=== PATIENT | female | born 1965 | race Caucasian/White ===

== ENCOUNTER → 2019-04-12 | Outpatient (CLI) | payer BC ==
--- NOTE | 2019-04-12 16:14 | REPMRS ---
Patient History The patient states she has not had a clinical breast exam in over a year. Patient is postmenopausal. Family history of breast cancer at age 50 in maternal grandmother, breast cancer at age 32 in paternal aunt. No Hormone Replacement Therapy 3D TOMOSYNTHESIS WAS PERFORMED. Digital Woman Screen Mammo: April 12, 2019 - Exam #: [id number] Bilateral CC and MLO view(s) were taken. Technologist: Irena Aguilar, Technologist FINDINGS: There are scattered fibroglandular densities. There has been no change in the appearance of the mammogram from the prior studies. There is a mild amount of residual fibroglandular tissue which is fairly symmetric. There is no interval development of dominant mass, architectural distortion, or clustered microcalcification suggestive of malignancy. Assessment: BI-RADS/ACR category 1 mammogram. Negative Mammogram. Recommendation Routine screening mammogram in 1 year (for women over age 40). This mammogram was interpreted with the aid of an FDA-approved computer-aided dectection system. THE LIFETIME RISK OF BREAST CANCER IS 22.0%, THEREFORE SUPPLEMENTAL SCREENING MRI OF THE BREASTS IS RECOMMENDED IN 6 MONTHS. Electronically Signed By: Gordo Jolley MD 04/12/19 [id number]
== END ==
LOC: M WHC 14:28
PROVIDERS: ATTEND Physician Assistant Medical
DX: Z12.31 Encounter for screening mammogram for malignant neoplasm of breast (principal); Z78.0 Asymptomatic menopausal state; Z80.3 Family history of malignant neoplasm of breast

== ENCOUNTER 2021-03-15 19:13 | Observation (INO) | payer SELFPAY ==
[~2021-03-15] VITALS: Ht 172.7 cm; Wt 116.4 kg
[2021-03-15] MEDS ORDERED: lisinopriL 5 MG TAB PO SCH (21:00)
[2021-03-15] MEDS ORDERED: NS 1,000 ML IV ONE (21:20)
--- NOTE | 2021-03-15 21:30 | ECGEPIP ---
[facility] - ED Test Date: 2021-03-15 Pat Name: TRENT ARTEAGA Department: Room: - Gender: Female Mission Manager: TEREZA : 1965 Requested By: SARTHAK Uriostegui Order Number: [id number] Reading MD: Gerard Stewart Measurements Intervals [place] Rate: 98 P: -8 SD: 152 QRS: -24 QRSD: 98 T: 19 QT: 366 QTc: 467 Interpretive Statements Normal sinus rhythm Minimal voltage criteria for LVH, may be normal variant ( Gustavo product ) POOR R WAVE PROGRESSION SIMILAR TO 06/12/16 Electronically Signed on 03-15-2021 21:29:30 EDT by Gerard Stewart
[2021-03-15 22:01] LABS: VENOUS BASE EXCESS 2.1 (-2.0-2.0); VENOUS HCO3 28.8 MEQ/L (23.0-27.0); VENOUS O2 SATURATION 58.7 % (60.0-80.0); VENOUS PARTIAL PRESSURE CO2 52.1 mmHg (38.0-50.0); VENOUS PARTIAL PRESSURE O2 30.6 mmHg (30.0-50.0); VENOUS STANDARD HCO3 25.3 MEQ/L; VENOUS TOTAL CO2 30.4 MEQ/L (24.0-28.0)
[2021-03-15 22:03] LABS: BASO # 0.1 10^3/uL (0.0-0.2); BASO % 0.8 % (0.0-1.0); EOS # 0.2 10^3/uL (0.0-0.5); EOS % 2.6 % (0.0-3.0); HEMATOCRIT 42.1 % (36.0-47.0); LYMPH # 2.1 10^3/uL (1.5-5.0); LYMPH % 25.9 % (24.0-44.0); MEAN CORPUSCULAR HEMOGLOBIN 30.7 pg (27.0-33.0); MEAN CORPUSCULAR HGB CONC 35.6 g/dl (32.0-36.5); MEAN CORPUSCULAR VOLUME 86.1 fl (80.0-96.0); MONO # 0.4 10^3/uL (0.0-0.8); MONO % 5.3 % (2.0-8.0); NEUTROPHILS # 5.2 10^3/uL (1.5-8.5); NEUTROPHILS % 64.6 % (36.0-66.0); PLATELET COUNT, AUTOMATED 176 10^3/uL (150-450); RED BLOOD COUNT 4.89 10^6/uL (4.00-5.40)
[2021-03-15 22:31] LABS: CK-MB VALUE MASS < 1.0 NG/ML (<3.6); CPK CREATINE PHOSPHOKINASE 43 U/L (26-192); MB/CK RELATIVE INDEX 2.33 (< OR =4); TROPONIN I < 0.02 NG/ML (< 0.10)
[2021-03-15 22:34] LABS: HEMOGLOBIN A1c 13.3 %
[2021-03-15 22:36] LABS: ACETONE/KETONE 13.73 MG/DL (<2.81); ALBUMIN 4.3 GM/DL (3.2-5.2); BILIRUBIN,DIRECT 0.4 MG/DL (0.0-0.2); BILIRUBIN,TOTAL 1.6 MG/DL (0.2-1.0); CALCIUM LEVEL 9.4 MG/DL (8.5-10.1); CREATININE FOR GFR 1.39 MG/DL (0.55-1.30); GLOMERULAR FILTRATION RATE 42.1 (>51); POTASSIUM SERUM 3.3 MEQ/L (3.5-5.1); TOTAL PROTEIN 7.5 GM/DL (6.4-8.2)
[2021-03-15] MEDS ORDERED: GLUCAGON INJ 1MG VIAL SC PRN (23:15)
[2021-03-15] MEDS ORDERED: GLUCOSE 4GM CHEW TABLET PO PRN (23:15)
[2021-03-15] MEDS ORDERED: ACETAMINOPHEN TAB 650MG DOSE (2X325MG) PO PRN (23:15)
[2021-03-15] MEDS ORDERED: LEVEMIR (INSULIN DETEMIR) 1 UNITS/0.01ML SC ONE (23:15)
[2021-03-15] MEDS ORDERED: MOM 30ML SUSPENSION UDC PO PRN (23:15)
[2021-03-15] MEDS ORDERED: MAALOX 30 ML SUSP *UDC PO PRN (23:15)
[2021-03-15] MEDS ORDERED: DEXTROSE 50% 50 ML SYRINGE IV PRN (23:15)
--- NOTE | 2021-03-15 23:16 | HPEPDOC ---
[facility] Medical History & Physical Date of Admission Mar 15, 2021 Date of Service: Mar 15, 2021 Attending Physician: CHINA MATHEW MD History and Physical CHIEF COMPLAINT: [55 y/o female reports to ED after abnormal routine bloodwork] HISTORY OF PRESENT ILLNESS: [This is a 55 y/o female with a pmh of htn who presents to the ED after routine lab work at her PCP office showed a blood glucose of over 500. Patient states that she has not had routine bloodwork since approx. 2016. Patient states that she has no acute complaints and denies fevers, chills, abd pain, n/v/d/c, sob, chest pain, headaches. Patient does not have formal diagnosis of diabetes. Repeat labwork performed in the ED showed blood glucose of 428, A1C of 13.3, cr of 1.39] PAST MEDICAL HISTORY: 1. [See HPI PAST SURGICAL HISTORY: 1. [Cholecystectomy]. SOCIAL HISTORY: Tobacco use:[Denies] ETOH: [Denies] Illicit drug use: [Denies] FAMILY HISTORY: Reviewed - none pertinent ALLERGIES: Please see below. REVIEW OF SYSTEMS: CONSTITUTIONAL: [See HPI]. HEENT: [Denies uri sx]. CARDIOVASCULAR: [See HPI]. RESPIRATORY: [See HPI]. GASTROINTESTINAL: [See HPI]. GENITOURINARY: [Denies dysuria]. SKIN: [Denies rash]. MUSCULOSKELETAL: [Denies acute joint/back pain]. NEUROLOGICAL: [Denies syncope, paresthesias]. ENDOCRINE: [Denies hx of DM]. HEMATOLOGIC/LYMPHATIC: [Denies easy bruising]. HOME MEDICATIONS: Please see below. PHYSICAL EXAMINATION: VITAL SIGNS: Please see below. GENERAL APPEARANCE: [This is an obese 55 y/o female who does not appear to be in any acute distress.]. HEENT: [No mass or lesion. EOMI. No scleral icterus. Nares patent. Oral mucosa moist.]. CARDIOVASCULAR: [Regular rate, rhythm. No murmurs, rubs, gallops]. LUNGS: [Good air flow b/l. No wheezing, rales, rhonchi.]. ABDOMEN: [Soft, nontender]. MUSCULOSKELETAL: [No joint deformity]. EXTREMITIES: [No peripheral edema noted. No overlying skin changes. Pulses intact]. NEUROLOGICAL: [Speech clear. A+Ox3. No focal deficits]. PSYCHIATRIC: [Mood and affect appear appropriate.]. LABORATORY DATA: See below. MICROBIOLOGY: Please see below. ASSESSMENT: [This is a 55 y/o female with a pmh of htn who presents to the ED after routine lab work at her PCP office showed a blood glucose of over 500. Repeat labwork performed in the ED showed blood glucose of 428, A1C of 13.3, cr of 1.39]. . PLAN: 1. [Type 2 diabetes with hyperglycemia - Patient does not meet total criteria for DKA. No anion gap acidosis. Only mild ketones - Will give 5 units of lispro, 10 units of levemir now - Acuchecks q2h overnight - Sliding scale, hypoglycemic protocol while in the hospital - consistent carbs diet - Diabetic teaching ordered - patient will need to leave the hospital on some sort of diabetic medication - Admit to pcu for obs 2. ALINA - cr slightly elevated at 1.4 - Almost certainly related to dehydration 2/2 acutely elevated glucose - Patient will be given fluids - Renal us, urine na and cr - Repeat kidney function in the morning 3. HTN - continue chlorthalidone, spironolactone, beckie DVT prophylaxis - teds and scds]. Vital Signs Vital Signs Date Time Temp Pulse Resp B/P (MAP) Pulse Ox O2 Delivery O2 Flow Rate FiO2 03/15/21 22:00 03/15/21 19:15 96.8 109 20 99 Room Air Laboratory Data Labs 24H Laboratory Tests 2 03/15/21 21:50: Immature Granulocyte % (Auto) 0.8, Neutrophils (%) (Auto) 64.6, Lymphocytes (%) (Auto) 25.9, Monocytes (%) (Auto) 5.3, Eosinophils (%) (Auto) 2.6, Basophils (%) (Auto) 0.8, Neutrophils # (Auto) 5.2, Lymphocytes # (Auto) 2.1, Monocytes # (Auto) 0.4, Eosinophils # (Auto) 0.2, Basophils # (Auto) 0.1, Nucleated Red Blood Cells % (auto) 0.0, Urine Color YELLOW, Urine Appearance CLEAR, Urine pH 5.0, Urine Specific [place] 1.029, Urine Protein NEGATIVE, Urine Glucose (UA) 3+H, Urine Ketones 1+H, Urine Blood NEGATIVE, Urine Nitrite NEGATIVE, Urine Bilirubin NEGATIVE, Urine Urobilinogen 0.2, Urine Leukocyte Esterase TRACEH, Urine WBC (Auto) 1, Urine RBC (Auto) 1, Urine Hyaline Casts (Auto) 0, Urine B acteria (Auto) NEGATIVE, Urine Squamous Epithelial Cells 2, Urine Mucus (Auto) SMALL, Urine Sperm (Auto) , Blood Gas Bicarbonate Standard 25.3, Venous Blood pH 7.360, Venous Blood Partial Pressure CO2 52.1H, Venous Blood Partial Pressure O2 30.6, Venous Blood Total Carbon Dioxide 30.4H, Venous Blood HCO3 28.8H, Venous Blood Oxygen Saturation 58.7L, Venous Blood Base Excess 2.1H, Anion Gap 6L, Glom erular Filtration Rate 42.1L, Estimated Mean Plasma Glucose 335H, Hemoglobin A1c 13.3, Osmolality 305H, Calcium Level 9.4, Total Bilirubin 1.6H, Direct Bilirubin 0.4H, Aspartate Amino Transf (AST/SGOT) 20, Alanine Aminotransferase (ALT/SGPT) 40, Alkaline Phosphatase 171H, Total Creatine Kinase 43, Creatine Kinase MB < 1.0, Creatine Kinase MB Relative Index 2.33, Troponin I < 0.02, Total Protein 7. 5, Albumin 4.3, Albumin/Globulin Ratio 1.3, Lipase 168, B-Hydroxybutyrate 13.73H CBC/BMP Laboratory Tests 03/15/21 21:50 Microbiology Microbiology 03/15/21 Urine Culture, Received Pending Home Medications Scheduled Chlorthalidone (Chlorthalidone) 25 Mg Tablet, 25 MG PO DAILY Perindopril Erbumine (Perindopril Erbumine) 2 Mg Tablet, 2 MG PO QHS Spironolactone (Spironolactone) 25 Mg Tablet, 25 MG PO DAILY Allergies Coded Allergies: Penicillins (Verified Allergy, Unknown, 03/15/21) Sulfa (Sulfonamide Antibiotics) (Verified Allergy, Unknown, 03/15/21) A-FIB/CHADSVASC A-FIB History Current/History of A-Fib/PAF?: No BOUBACAR JAMES Mar 15, 2021 23:16
[2021-03-15] MEDS ORDERED: HumaLOG INSULIN (NovoLOG) PER UNIT SC ONE (23:20)
[2021-03-15] MEDS ORDERED: PERI2TAB PO (23:45)
[2021-03-15] MEDS ORDERED: CHLO25TA PO (23:45)
[2021-03-15] MEDS ORDERED: SPIR-10 PO (23:45)
[2021-03-15] MEDS ORDERED: HumuLIN R (REGULAR) INSULIN (NovoLIN R) **100U/ML** PER UNIT IV ONE (23:55)
[2021-03-16] MEDS ORDERED: NS 1,000 ML IV ONE (00:10)
[2021-03-16 00:48] LABS: RSV AMPLIFICATION NEGATIVE (NEGATIVE)
[2021-03-16 01:00] VITALS: BP 123/74
[2021-03-16 01:35] VITALS: BP 123/74
--- NOTE | 2021-03-16 02:02 | REPVR ---
PROCEDURE INFORMATION: Exam: US Retroperitoneal Limited, Kidneys Exam date and time: 03/16/2021 12:47 AM Age: 55 years old Clinical indication: Abnormal findings; Abnormal lab test; Abnormal kidney function lab tests; Additional info: Chandan TECHNIQUE: Imaging protocol: Real-time ultrasound of the retroperitoneum with image documentation. Examination was focused on the kidneys. COMPARISON: No relevant prior studies available. FINDINGS: Right kidney: No stones. No hydronephrosis. Left kidney: No stones. No hydronephrosis. IMPRESSION: No acute findings. Electronically signed by: Miguel Magdaleno On 03/16/2021 02:01:37 AM
[2021-03-16 04:00] VITALS: BP 102/67
[2021-03-16 04:43] LABS: HEMATOCRIT 33.9 % (36.0-47.0); MEAN CORPUSCULAR HEMOGLOBIN 30.3 pg (27.0-33.0); MEAN CORPUSCULAR HGB CONC 35.1 g/dl (32.0-36.5); MEAN CORPUSCULAR VOLUME 86.3 fl (80.0-96.0); PLATELET COUNT, AUTOMATED 109 10^3/uL (150-450); RED BLOOD COUNT 3.93 10^6/uL (4.00-5.40)
[2021-03-16 04:49] LABS: HEMOGLOBIN 11.9 g/dl (12.0-15.5)
[2021-03-16 05:12] LABS: CALCIUM LEVEL 8.5 MG/DL (8.5-10.1); CREATININE FOR GFR 1.07 MG/DL (0.55-1.30); GLOMERULAR FILTRATION RATE 56.9 (>51); POTASSIUM SERUM 3.3 MEQ/L (3.5-5.1)
[2021-03-16 07:52] VITALS: BP 115/75
[2021-03-16] MEDS: HumaLOG INSULIN (NovoLOG) PER UNIT SC SCH ×2 (08:47→12:02)
[2021-03-16 08:55] LABS: CREATININE,RANDOM URINE 99.9 MG/DL
[2021-03-16] MEDS ORDERED: CHLORTHALIDONE 25 MG TAB PO SCH (09:00)
[2021-03-16] MEDS ORDERED: SPIRONOLACTONE 25 MG TAB PO SCH (09:00)
--- NOTE | 2021-03-16 09:37 | DSES ---
DISCHARGE SUMMARY DATE OF ADMISSION: 03/15/2021 DATE OF DISCHARGE: 03/16/2021 PRINCIPAL DIAGNOSIS: New onset uncontrolled type 2 diabetes. HISTORY: Juanita Pressley is a patient of Beth Magaña in the [facility] office. She only comes in about once a year. Last lab testing was 2015. She does not have insurance and has been foregoing routine lab work. She had routine labs done yesterday. Blood sugar was over 500. There was not capacity for outpatient management of this so she was directed to the emergency room for stabilization and initiation of insulin therapy. She has a history of hypertensive heart disease and is followed by Dr. Paul at [facility] for this. HOSPITAL COURSE: She was admitted to an ICU bed. Was started on IV fluids and sliding scale insulin coverage. She was instructed in the basics of diabetic care and today will be instructed on home monitoring technique, injection of insulin via a pen system, and the rudiments of diabetic diet. I did discuss the case with DELORES Tomlinson, today who will see her in outpatient follow up. Will get Stephanie Melgar, certified ems educator/cake knocker, to see her as an outpatient. LABORATORY DATA: Hemoglobin A1c was 13.3. White count 6, hemoglobin 11.9 after hydration, platelets 109. Sodium 137, potassium 3.3, BUN 27, creatinine 1.0, glucose 319. Bicarbonate was normal. Anion gap was normal. Venous blood gas was essentially unhelpful for her condition. DISPOSITION: Discharge home in improved and stable condition. She has been stabilized. She is not in any DKA. 1. She is a type 2 diabetic with uncontrolled diabetes. She now understands the rudiments of self care for her diabetes and will be discharged after she expresses understanding of using a pen system. She will be using Lantus 20 units at bedtime. She will be checking her blood sugars before breakfast and before supper and bring those numbers to the office next week to see Beth Magaña. Referrals for nutritional and diabetic education at that time. 2. Hypertension. Blood pressure has been relatively low and systolic pressure is 102 this morning. She is hypokalemic. I am going to discontinue her hydrochlorothiazide on discharge. Continue her spironolactone and SORIN inhibitor therapy. 3. She has elevated lipids which can be addressed as an outpatient. Transition to oral diabetic medications will take place as an outpatient.
[2021-03-16] MEDS ORDERED: LANTINJ4 SC (13:13)
[2021-03-16] MEDS ORDERED: HumaLOG INSULIN (NovoLOG) PER UNIT SC SCH (21:00)
== END 2021-03-16 14:30 | disposition home or self-care (01) ==
LOC: M ED 19:13 → M ED INP 19:14 → ENRESERV 03-16 00:51 → M ICU 03-16 02:39
PROVIDERS: ADMIT Family Medicine; ATTEND Family Medicine
DX: E11.65 Type 2 diabetes mellitus with hyperglycemia (principal); I11.9 Hypertensive heart disease without heart failure; E87.6 Hypokalemia; E78.5 Hyperlipidemia, unspecified; N17.9 Acute kidney failure, unspecified; Z79.899 Other long term (current) drug therapy; Z88.0 Allergy status to penicillin; Z88.2 Allergy status to sulfonamides

== ENCOUNTER → 2021-03-15 | Outpatient (REF) | payer SELFPAY ==
[~2021-03-15] MED LIST: CHLO25TA PO; LANTINJ4 SC; PERI2TAB PO; SPIR-10 PO
[2021-03-15 17:58] LABS: BILIRUBIN,TOTAL 1.5 MG/DL (0.2-1.0); CALCIUM LEVEL 9.1 MG/DL (8.5-10.1); CHOLESTEROL RISK RATIO 6.343 (<5); CREATININE FOR GFR 1.43 MG/DL (0.55-1.30); GLOMERULAR FILTRATION RATE 40.7 (>51); THYROID STIMULATING HORMONE 1.51 uIU/ML (0.358-3.740); TOTAL PROTEIN 7.2 GM/DL (6.4-8.2)
== END ==
LOC: M SFHCADAM 15:12
PROVIDERS: ATTEND Physician Assistant Medical
DX: E66.01 Morbid (severe) obesity due to excess calories (principal); I10 Essential (primary) hypertension

== ENCOUNTER → 2021-08-13 | Outpatient (REF) | payer OTHER ==
[2021-08-13 16:36] LABS: ALBUMIN 3.9 GM/DL (3.2-5.2); BILIRUBIN,TOTAL 1.1 MG/DL (0.2-1.0); CALCIUM LEVEL 9.9 MG/DL (8.5-10.1); CHOLESTEROL RISK RATIO 3.51 (<5); CREATININE FOR GFR 1.06 MG/DL (0.55-1.30); GLOMERULAR FILTRATION RATE 57.3 (>51); POTASSIUM SERUM 4.8 MEQ/L (3.5-5.1); THYROID STIMULATING HORMONE 1.71 uIU/ML (0.358-3.740)
[2021-08-13 17:08] LABS: HEMOGLOBIN A1c 5.5 %
== END ==
LOC: M SFHCADAM 14:58
PROVIDERS: ATTEND Physician Assistant Medical
DX: E11.65 Type 2 diabetes mellitus with hyperglycemia (principal)

== ENCOUNTER → 2022-05-02 | Outpatient (REF) | payer OTHER ==
[2022-05-02 18:29] LABS: MALB URINE SIEMENS 9.1 MG/L; MAU/CREAT RATIO 5.8 MCG/MG (0.0-30.0)
[2022-05-02 19:47] LABS: ALBUMIN 3.6 GM/DL (3.2-5.2); BILIRUBIN,TOTAL 0.9 MG/DL (0.2-1.0); CALCIUM LEVEL 8.8 MG/DL (8.5-10.1); CHOLESTEROL RISK RATIO 3.619 (<5); CREATININE FOR GFR 1.19 MG/DL (0.55-1.30); POTASSIUM SERUM 4.3 MEQ/L (3.5-5.1); THYROID STIMULATING HORMONE 1.39 uIU/ML (0.358-3.740); TOTAL PROTEIN 6.7 GM/DL (6.4-8.2)
[2022-05-02 20:53] LABS: HEMOGLOBIN A1c 5.6 %
== END ==
LOC: M SFHCADAM 12:58
PROVIDERS: ATTEND Physician Assistant Medical
DX: E11.65 Type 2 diabetes mellitus with hyperglycemia (principal)

== ENCOUNTER → 2022-12-18 | Outpatient (REF) | payer OTHER ==
[2022-12-18 13:47] LABS: BASO % 0.9 % (0.0-1.0); EOS # 0.2 10^3/uL (0.0-0.5); EOS % 5.1 % (0.0-3.0); HEMATOCRIT 41.4 % (36.0-47.0); HEMOGLOBIN 13.5 g/dl (12.0-15.5); LYMPH # 0.8 10^3/uL (1.5-5.0); LYMPH % 24.9 % (24.0-44.0); MEAN CORPUSCULAR HEMOGLOBIN 29.3 pg (27.0-33.0); MEAN CORPUSCULAR HGB CONC 32.6 g/dl (32.0-36.5); MEAN CORPUSCULAR VOLUME 89.8 fl (80.0-96.0); MONO # 0.2 10^3/uL (0.0-0.8); MONO % 6.3 % (2.0-8.0); NEUTROPHILS # 2.1 10^3/uL (1.5-8.5); NEUTROPHILS % 62.5 % (36.0-66.0); RED BLOOD COUNT 4.61 10^6/uL (4.00-5.40); WHITE BLOOD COUNT 3.3 10^3/uL (4.0-10.0)
[2022-12-18 14:05] LABS: ALBUMIN 4.1 G/DL (3.2-5.2); ALKALINE PHOSPHATASE 91 U/L (46-116); ALT/SGPT 24 U/L (7.0-40); AST/SGOT 14 U/L (<34); BILIRUBIN,TOTAL 1.1 MG/DL (0.3-1.2); BLOOD UREA NITROGEN 31 MG/DL (9-23); CALCIUM LEVEL 9.6 MG/DL (8.5-10.1); CARBON DIOXIDE LEVEL 28 MMOL/L (20-31); CHLORIDE LEVEL 106 MMOL/L (98-107); CHOLESTEROL LEVEL 121 MG/DL (<200); CHOLESTEROL RISK RATIO 2.46 (<5); CREATININE FOR GFR 0.97 MG/DL (0.55-1.30); GLOMERULAR FILTRATION RATE > 60.0 (>51); GLUCOSE, FASTING 128 MG/DL (60-100); LDL CHOLESTEROL 55.4 MG/DL (<100); POTASSIUM SERUM 4.8 MMOL/L (3.5-5.1); SODIUM LEVEL 140 MMOL/L (136-145); TOTAL PROTEIN 6.5 G/DL (5.7-8.2); TRIGLYCERIDES LEVEL 83 MG/DL (<150)
[2022-12-18 14:06] LABS: TOTAL 25(OH) VITAMIN D 23.8 NG/ML (20.0-100.0)
[2022-12-18 14:26] LABS: PLATELET COUNT, AUTOMATED 87 10^3/uL (150-450)
== END ==
LOC: M SFHCADAM 08:37
PROVIDERS: ATTEND Physician Assistant Medical
DX: I10 Essential (primary) hypertension (principal); E78.2 Mixed hyperlipidemia; E66.01 Morbid (severe) obesity due to excess calories; E11.65 Type 2 diabetes mellitus with hyperglycemia

== ENCOUNTER → 2023-07-02 | Outpatient (REF) | payer OTHER ==
[2023-07-02 18:48] LABS: THYROID STIMULATING HORMONE 2.015 uIU/ML (0.55-4.78)
[2023-07-02 18:49] LABS: BILIRUBIN,TOTAL 1.1 MG/DL (0.3-1.2); CALCIUM LEVEL 9.6 MG/DL (8.5-10.1); CHOLESTEROL RISK RATIO 2.46 (<5); CREATININE FOR GFR 1.19 MG/DL (0.55-1.30); GLOMERULAR FILTRATION RATE 49.8 (>51); HDL CHOLESTEROL 47.9 MG/DL (>40); LDL CHOLESTEROL 49.9 MG/DL (<100); NON-HDL-C 70.1 MG/DL; POTASSIUM SERUM 4.8 MMOL/L (3.5-5.1); TOTAL 25(OH) VITAMIN D 30.7 NG/ML (20.0-100.0); TOTAL PROTEIN 6.5 G/DL (5.7-8.2)
[2023-07-02 18:52] LABS: HEMOGLOBIN A1c 4.9 % (4.0-6.0)
== END ==
LOC: M SFHCADAM 14:53
PROVIDERS: ATTEND Physician Assistant Medical
DX: I10 Essential (primary) hypertension (principal); E78.2 Mixed hyperlipidemia; E66.01 Morbid (severe) obesity due to excess calories; E11.65 Type 2 diabetes mellitus with hyperglycemia

== ENCOUNTER 2023-07-14 07:08 | Day surgery (SDC) | payer OTHER ==
[~2023-07-14] VITALS: Ht 172.7 cm; Wt 120.2 kg
[~2023-07-14 07:08] MED LIST changes: +B-12100010 PO; +CYCLOPENTOLATE 1% OPHTH SOLN 2ML BTL OS SCH; +FLURBIPROFEN 0.03% OPHTH SOLN 2.5 ML OS SCH; +LIDOCAINE 1% SDV 5ML VIAL As Ordered ONE; +LR 1,000 ML IV SCH; +METF10004 PO; +MIDAZOLAM INJ 2MG/2ML VIAL As Ordered ONE; +PHENYLEPHRINE 2.5% OPHTH SOL 2ML OS SCH; +SIMV20TA22 PO; +TRUL0.5I; +fentaNYL 100 MCG/2 ML INJECTION As Ordered ONE
[2023-07-14] MEDS: TETRACAINE 0.5% OPHTH SOLN 4ML OS SCH ×2 (07:42→09:21)
[2023-07-14 09:40] VITALS: BP 125/80; TEMP 96.7; O2SAT 97
== END 2023-07-14 10:25 | disposition home or self-care (01) ==
LOC: M SDC 07:08
PROVIDERS: ATTEND Ophthalmology
DX: H25.12 Age-related nuclear cataract, left eye (principal); E11.9 Type 2 diabetes mellitus without complications; I10 Essential (primary) hypertension; Z88.0 Allergy status to penicillin; Z88.2 Allergy status to sulfonamides; Z79.899 Other long term (current) drug therapy; Z79.84 Long term (current) use of oral hypoglycemic drugs; Z79.85 Long-term (current) use of injectable non-insulin antidiabetic drugs
CPT/HCPCS: 66984; J2250; J3010; V2632

== ENCOUNTER 2023-08-11 06:19 | Day surgery (SDC) | payer OTHER ==
[~2023-08-11] VITALS: Ht 172.7 cm; Wt 121.6 kg
[~2023-08-11 06:19] MED LIST changes: +CYCLOPENTOLATE 1% OPHTH SOLN 2ML BTL OD SCH; -CYCLOPENTOLATE 1% OPHTH SOLN 2ML BTL OS SCH; +FLURBIPROFEN 0.03% OPHTH SOLN 2.5 ML OD SCH; -FLURBIPROFEN 0.03% OPHTH SOLN 2.5 ML OS SCH; -LIDOCAINE 1% SDV 5ML VIAL As Ordered ONE; -LR 1,000 ML IV SCH; +METF-839 PO; -MIDAZOLAM INJ 2MG/2ML VIAL As Ordered ONE; +PHENYLEPHRINE 2.5% OPHTH SOL 2ML OD SCH; -PHENYLEPHRINE 2.5% OPHTH SOL 2ML OS SCH; +TETRACAINE 0.5% OPHTH SOLN 4ML OD SCH; -fentaNYL 100 MCG/2 ML INJECTION As Ordered ONE
[2023-08-11] MEDS ORDERED: LIDOCAINE 1% SDV 5ML VIAL As Ordered ONE (06:46)
[2023-08-11] MEDS ORDERED: LR 1,000 ML IV SCH (07:00)
[2023-08-11] MEDS ORDERED: CEFUROXIME 1MG/0.1ML INTRACAMERAL INJ As Ordered ONE (07:03)
[2023-08-11] MEDS ORDERED: MIDAZOLAM INJ 2MG/2ML VIAL As Ordered ONE (07:46)
[2023-08-11] MEDS ORDERED: LABETALOL 100MG/20ML VIAL As Ordered ONE (08:02)
[2023-08-11 08:23] VITALS: BP 120/78; TEMP 97.6; O2SAT 97
== END 2023-08-11 08:47 | disposition home or self-care (01) ==
LOC: M SDC 06:19
PROVIDERS: ATTEND Ophthalmology
DX: E11.36 Type 2 diabetes mellitus with diabetic cataract (principal); H25.11 Age-related nuclear cataract, right eye; I10 Essential (primary) hypertension; Z79.84 Long term (current) use of oral hypoglycemic drugs; Z79.899 Other long term (current) drug therapy; Z79.85 Long-term (current) use of injectable non-insulin antidiabetic drugs; Z88.2 Allergy status to sulfonamides; Z88.0 Allergy status to penicillin
CPT/HCPCS: 66984; J0697; J1920; J2250; V2632

== ENCOUNTER → 2023-12-31 | Outpatient (REF) | payer OTHER ==
[~2023-12-31] MED LIST changes: -CYCLOPENTOLATE 1% OPHTH SOLN 2ML BTL OD SCH; -FLURBIPROFEN 0.03% OPHTH SOLN 2.5 ML OD SCH; -PHENYLEPHRINE 2.5% OPHTH SOL 2ML OD SCH; -TETRACAINE 0.5% OPHTH SOLN 4ML OD SCH
[2023-12-31 18:38] LABS: ALBUMIN 3.8 G/DL (3.2-5.2); BILIRUBIN,TOTAL 1.1 MG/DL (0.3-1.2); CALCIUM LEVEL 8.9 MG/DL (8.5-10.1); CREATININE FOR GFR 1.12 MG/DL (0.55-1.30); GLOMERULAR FILTRATION RATE 53.4 (>51); POTASSIUM SERUM 4.1 MMOL/L (3.5-5.1); TOTAL PROTEIN 6.4 G/DL (5.7-8.2)
== END ==
LOC: M SFHCADAM 14:56
PROVIDERS: ATTEND Physician Assistant Medical
DX: Z01.818 Encounter for other preprocedural examination (principal); E11.65 Type 2 diabetes mellitus with hyperglycemia

== ENCOUNTER → 2024-04-05 | Outpatient (CLI) | payer OTHER ==
[2024-04-05 17:48] LABS: BASO # 0.1 10^3/uL (0.0-0.2); EOS # 0.2 10^3/uL (0.0-0.5); EOS % 3.4 % (0.0-3.0); HEMATOCRIT 42.6 % (36.0-47.0); HEMOGLOBIN 14.2 g/dl (12.0-15.5); LYMPH % 19.1 % (24.0-44.0); MEAN CORPUSCULAR HEMOGLOBIN 29.9 pg (27.0-33.0); MEAN CORPUSCULAR HGB CONC 33.3 g/dl (32.0-36.5); MEAN CORPUSCULAR VOLUME 89.7 fl (80.0-96.0); MONO # 0.3 10^3/uL (0.0-0.8); NEUTROPHILS # 3.5 10^3/uL (1.5-8.5); NEUTROPHILS % 70.1 % (36.0-66.0); RED BLOOD COUNT 4.75 10^6/uL (4.00-5.40)
[2024-04-05 18:10] LABS: CREATININE, URINE 171.7 MG/DL; MAU/CREAT RATIO 19.2 MCG/MG (0.0-30.0)
[2024-04-05 18:14] LABS: ALBUMIN 4.3 G/DL (3.2-5.2); BILIRUBIN,TOTAL 1.6 MG/DL (0.3-1.2); CALCIUM LEVEL 9.9 MG/DL (8.5-10.1); CHOLESTEROL RISK RATIO 2.75 (<5); CREATININE FOR GFR 1.19 MG/DL (0.55-1.30); GLOMERULAR FILTRATION RATE 49.8 (>51); HDL CHOLESTEROL 41.7 MG/DL (>40); LDL CHOLESTEROL 52.3 MG/DL (<100); NON-HDL-C 73.3 MG/DL; POTASSIUM SERUM 4.9 MMOL/L (3.5-5.1); TOTAL PROTEIN 6.7 G/DL (5.7-8.2)
[2024-04-05 18:16] LABS: THYROID STIMULATING HORMONE 1.407 uIU/ML (0.55-4.78); TOTAL 25(OH) VITAMIN D 36.2 NG/ML (20.0-100.0)
[2024-04-05 18:17] LABS: HEMOGLOBIN A1c 5.5 % (4.0-6.0)
[2024-04-05 18:30] LABS: PLATELET COUNT, AUTOMATED 83 10^3/uL (150-450)
== END ==
LOC: M PLALAB 15:34
PROVIDERS: ATTEND Physician Assistant Medical
DX: E11.65 Type 2 diabetes mellitus with hyperglycemia (principal); I10 Essential (primary) hypertension; E78.2 Mixed hyperlipidemia; E66.01 Morbid (severe) obesity due to excess calories; Z79.4 Long term (current) use of insulin

== ENCOUNTER → 2024-07-15 | Outpatient (REF) | payer OTHER ==
[2024-07-15 13:48] LABS: EOS # 0.2 10^3/uL (0.0-0.5); EOS % 5.1 % (0.0-3.0); HEMATOCRIT 42.3 % (36.0-47.0); HEMOGLOBIN 14.1 g/dl (12.0-15.5); LYMPH # 0.8 10^3/uL (1.5-5.0); LYMPH % 18.8 % (24.0-44.0); MEAN CORPUSCULAR HEMOGLOBIN 30.5 pg (27.0-33.0); MEAN CORPUSCULAR HGB CONC 33.3 g/dl (32.0-36.5); MEAN CORPUSCULAR VOLUME 91.4 fl (80.0-96.0); MONO # 0.3 10^3/uL (0.0-0.8); MONO % 6.5 % (2.0-8.0); NEUTROPHILS # 2.8 10^3/uL (1.5-8.5); NEUTROPHILS % 68.4 % (36.0-66.0); RED BLOOD COUNT 4.63 10^6/uL (4.00-5.40); WHITE BLOOD COUNT 4.1 10^3/uL (4.0-10.0)
[2024-07-15 13:53] LABS: ALKALINE PHOSPHATASE 86 U/L (46-116); ALT/SGPT 17 U/L (7.0-40); AST/SGOT < 8 U/L (<34); BILIRUBIN,TOTAL 1.3 MG/DL (0.3-1.2); BLOOD UREA NITROGEN 21 MG/DL (9-23); CALCIUM LEVEL 9.8 MG/DL (8.5-10.1); CARBON DIOXIDE LEVEL 29 MMOL/L (20-31); CHLORIDE LEVEL 108 MMOL/L (98-107); CHOLESTEROL LEVEL 139 MG/DL (<200); CHOLESTEROL RISK RATIO 2.65 (<5); CREATININE FOR GFR 1.09 MG/DL (0.55-1.30); GLOMERULAR FILTRATION RATE 54.9 (>51); GLUCOSE, FASTING 129 MG/DL (60-100); HDL CHOLESTEROL 52.4 MG/DL (>40); NON-HDL-C 86.6 MG/DL; POTASSIUM SERUM 5.1 MMOL/L (3.5-5.1); SODIUM LEVEL 141 MMOL/L (136-145); TOTAL PROTEIN 6.5 G/DL (5.7-8.2); TRIGLYCERIDES LEVEL 88 MG/DL (<150)
[2024-07-15 13:55] LABS: THYROID STIMULATING HORMONE 1.649 uIU/ML (0.55-4.78)
[2024-07-15 13:56] LABS: TOTAL 25(OH) VITAMIN D 34.8 NG/ML (20.0-100.0)
[2024-07-15 14:01] LABS: HEMOGLOBIN A1c 5.5 % (4.0-6.0); PLATELET COUNT, AUTOMATED 79 10^3/uL (150-450)
[2024-07-15 14:14] LABS: CREATININE, URINE 129.1 MG/DL
[2024-07-15 14:15] LABS: MALB URINE SIEMENS < 3.0 MG/L; MAU/CREAT RATIO 2.3 MCG/MG (0.0-30.0)
== END ==
LOC: M SFHCADAM 09:46
PROVIDERS: ATTEND Physician Assistant Medical
DX: E11.65 Type 2 diabetes mellitus with hyperglycemia (principal); I10 Essential (primary) hypertension; E78.2 Mixed hyperlipidemia; E66.01 Morbid (severe) obesity due to excess calories; Z79.4 Long term (current) use of insulin

== ENCOUNTER → 2024-07-15 | Outpatient (CLI) | payer OTHER | LOC: M ADAMS 09:53 | PROVIDERS: ATTEND Physician Assistant Medical | DX: M17.12 Unilateral primary osteoarthritis, left knee (principal); M25.462 Effusion, left knee ==

== ENCOUNTER → 2025-01-14 | Outpatient (REF) | payer OTHER ==
[2025-01-14 18:39] LABS: ALBUMIN 3.9 G/DL (3.2-5.2); BILIRUBIN,TOTAL 0.9 MG/DL (0.3-1.2); CALCIUM LEVEL 9.4 MG/DL (8.5-10.1); CHOLESTEROL RISK RATIO 2.61 (<5); CREATININE FOR GFR 1.1 MG/DL (0.55-1.30); GLOMERULAR FILTRATION RATE 58.2 (>51); HDL CHOLESTEROL 56.5 MG/DL (>40); LDL CHOLESTEROL 75.1 MG/DL (<100); NON-HDL-C 91.5 MG/DL; THYROID STIMULATING HORMONE 1.582 uIU/ML (0.55-4.78); TOTAL PROTEIN 6.7 G/DL (5.7-8.2)
[2025-01-14 18:48] LABS: HEMOGLOBIN A1c 5.4 % (4.0-6.0)
== END ==
LOC: M SFHCADAM 14:51
PROVIDERS: ATTEND Physician Assistant Medical
DX: E11.65 Type 2 diabetes mellitus with hyperglycemia (principal); I10 Essential (primary) hypertension; E78.2 Mixed hyperlipidemia; E66.01 Morbid (severe) obesity due to excess calories; Z79.4 Long term (current) use of insulin